=== PATIENT | male | born 1970 | race Native Hawaiian/Other Pacific Islander ===

== ENCOUNTER 2016-09-03 04:03 | Outpatient (CLI) | payer OTHER ==
[~2016-09-03 04:03] MED LIST: IBUP-97 PO; TYLENOL325 MG OR
== END 2016-09-03 04:08 | disposition short-term general hospital (02) ==
LOC: AMB 04:03
DX: R10.84 Generalized abdominal pain (principal)
CPT/HCPCS: A0425; A0427

== ENCOUNTER 2016-09-03 04:11 | Inpatient (IN) | payer OTHER ==
[~2016-09-03] VITALS: Ht 167.6 cm; Wt 69.4 kg
[2016-09-03 04:15] VITALS: BP 193/93; TEMP 98.7
[2016-09-03 05:57] LABS: POTASSIUM 3.1 mmol/L (3.6-5.2); SODIUM 135 mmol/L (136-145)
[2016-09-03 06:08] LABS: PLATELET COUNT 572 K/uL (142-355)
[2016-09-03 09:05] VITALS: BP 201/87; TEMP 97.6; Ht 167.6 cm; Wt 69.4 kg
[2016-09-03 12:00] VITALS: BP 141/89; TEMP 97.3
[2016-09-03 16:00] VITALS: BP 137/86; TEMP 99.6
[2016-09-03 20:00] VITALS: BP 115/79; TEMP 98.4
[2016-09-04] VITALS: BP 120/82; TEMP 98.3
[2016-09-04 04:00] VITALS: BP 133/84; TEMP 97.6
[2016-09-04 05:38] LABS: POTASSIUM 3.7 mmol/L (3.6-5.2); SODIUM 140 mmol/L (136-145)
[2016-09-04 05:45] LABS: PLATELET COUNT 533 K/uL (142-355)
[2016-09-04 08:00] VITALS: BP 120/89; TEMP 99.1
[2016-09-04 12:00] VITALS: BP 131/83; TEMP 98.4
[2016-09-04 16:00] VITALS: BP 130/86; TEMP 98.9
[2016-09-04 20:00] VITALS: BP 132/72; TEMP 98.8
[2016-09-05 00:13] VITALS: BP 112/79; TEMP 98.5
[2016-09-05 04:00] VITALS: BP 128/80; TEMP 98.1
[2016-09-05 05:57] LABS: PLATELET COUNT 506 K/uL (142-355)
[2016-09-05 06:32] LABS: POTASSIUM 3.6 mmol/L (3.6-5.2); SODIUM 137 mmol/L (136-145)
[2016-09-05 08:00] VITALS: BP 130/83; TEMP 98.7
[2016-09-05 12:00] VITALS: BP 130/84; TEMP 98
[2016-09-05 16:00] VITALS: BP 142/93; TEMP 98.2
[2016-09-05 20:29] VITALS: BP 131/75; TEMP 98.7
[2016-09-06 00:19] VITALS: BP 127/81; TEMP 98
[2016-09-06 04:00] VITALS: BP 135/82; TEMP 98.6
[2016-09-06 05:56] LABS: POTASSIUM 3.7 mmol/L (3.6-5.2); SODIUM 138 mmol/L (136-145)
[2016-09-06 06:05] LABS: PLATELET COUNT 538 K/uL (142-355)
[2016-09-06 08:00] VITALS: BP 128/80; TEMP 98.6
[2016-09-06 12:00] VITALS: BP 140/81; TEMP 98.7
[2016-09-06 16:00] VITALS: BP 130/86; TEMP 98.3
[2016-09-06 20:00] VITALS: BP 134/86; TEMP 98.7
[2016-09-07] VITALS: BP 154/84; TEMP 97.7
[2016-09-07 04:00] VITALS: BP 112/86; TEMP 97.9
[2016-09-07 05:26] LABS: PLATELET COUNT 565 K/uL (142-355)
[2016-09-07 05:35] LABS: POTASSIUM 3.8 mmol/L (3.6-5.2); SODIUM 140 mmol/L (136-145)
[2016-09-07 07:56] VITALS: BP 107/84; TEMP 98.2
== END 2016-09-07 15:40 | disposition home or self-care (01) | DRG 382 ==
LOC: ED 04:11 → MED/SURG 06:20
PROVIDERS: Emergency Medicine; ADMIT Family Medicine
DX: K26.1 Acute duodenal ulcer with perforation (principal); K29.00 Acute gastritis without bleeding
CPT/HCPCS: 36415; 80053; 80307; 81000; 82271; 83605; 83735; 83986; 85014; 85018; 85027; 93005; 96360; 96366; 96367; 96374; 96375; 99284; G0479; J2060; J2270; J3475; J3490; Q9963

== ENCOUNTER 2016-09-09 16:59 | Inpatient (IN) | payer OTHER ==
[~2016-09-09] VITALS: Ht 167.6 cm; Wt 71.0 kg
[2016-09-09 17:13] VITALS: BP 175/104; TEMP 97.6
[2016-09-09 18:39] LABS: PLATELET COUNT 540 K/uL (142-355)
[2016-09-09 18:55] LABS: POTASSIUM 3.6 mmol/L (3.6-5.2); SODIUM 133 mmol/L (136-145)
[2016-09-09 20:00] VITALS: BP 164/87; TEMP 98.7
[2016-09-10] VITALS (7 sets, daily range): BP systolic 112–164; BP diastolic 70–92; TEMP 97.5–98.8; Ht 167.6 cm; Wt 71.0 kg
[2016-09-10 07:15] LABS: PLATELET COUNT 619 K/uL (142-355)
[2016-09-10 07:33] LABS: POTASSIUM 3.7 mmol/L (3.6-5.2); SODIUM 137 mmol/L (136-145)
[2016-09-11] VITALS: BP 121/79; TEMP 98.3
[2016-09-11 04:00] VITALS: BP 158/77; TEMP 98
[2016-09-11 06:46] LABS: PLATELET COUNT 717 K/uL (142-355)
[2016-09-11 07:43] LABS: POTASSIUM 4.1 mmol/L (3.6-5.2); SODIUM 139 mmol/L (136-145)
[2016-09-11 08:00] VITALS: BP 145/90; TEMP 98.4
[2016-09-11 11:56] VITALS: BP 113/82; TEMP 98.4
[2016-09-11 16:00] VITALS: BP 127/79; TEMP 98.1
[2016-09-11 20:00] VITALS: BP 108/62; TEMP 98.5
[2016-09-12] VITALS: BP 126/79; TEMP 98.6
[2016-09-12 04:00] VITALS: BP 132/90; TEMP 97.3
[2016-09-12 06:40] LABS: PLATELET COUNT 719 K/uL (142-355)
[2016-09-12 06:49] LABS: POTASSIUM 3.8 mmol/L (3.6-5.2); SODIUM 138 mmol/L (136-145)
[2016-09-12 08:00] VITALS: BP 129/83; TEMP 98.4
--- NOTE | 2016-09-12 14:05 | NUR ---
IV D/C'd. DISCHARGE INSTRUCTIONS SIGNED AND GIVEN. Pt. EXIT OUT OF FRONT ENTRANCE AMBULATING.
== END 2016-09-12 14:05 | disposition home or self-care (01) | DRG 392 ==
LOC: ED 16:59 → MED/SURG 19:59
PROVIDERS: Emergency Medicine; Internal Medicine; ADMIT Specialist
DX: K29.00 Acute gastritis without bleeding (principal); A04.8 Other specified bacterial intestinal infections; K29.80 Duodenitis without bleeding; J44.9 Chronic obstructive pulmonary disease, unspecified
CPT/HCPCS: 36415; 80053; 82150; 82272; 83690; 83735; 85014; 85018; 85027; 86318; 86850; 86900; 86901; 86922; 96361; 96374; 96375; 99284; J1650; J2175; J2550; J2780; J3490; J7120

== ENCOUNTER 2022-04-17 12:52 | Emergency (ER) | payer OTHER ==
[~2022-04-17] VITALS: Ht 167.6 cm; Wt 74.8 kg
[2022-04-17 12:56] VITALS: BP 144/71; TEMP 98.2
[2022-04-17 13:33] LABS: PLATELET COUNT 435 K/uL (142-355)
== END 2022-04-17 14:49 | disposition home or self-care (01) ==
LOC: ED 12:52
PROVIDERS: Emergency Medicine
DX: L02.415 Cutaneous abscess of right lower limb (principal); L03.115 Cellulitis of right lower limb
CPT/HCPCS: 80048; 83605; 85027; 90471; 90715; 96365; 99284; J0696

== ENCOUNTER 2022-04-24 10:45 | Observation (INO) | payer OTHER ==
[~2022-04-24] VITALS: Ht 172.7 cm; Wt 72.7 kg
[2022-04-24 13:12] VITALS: BP 128/75; TEMP 98.2; Ht 172.7 cm; Wt 72.7 kg
[2022-04-24 13:24] LABS: PLATELET COUNT 435 K/uL (142-355)
[2022-04-24 13:42] LABS: POTASSIUM 3.8 mmol/L (3.6-5.2)
[2022-04-24 16:00] VITALS: BP 146/68; TEMP 97.4
[2022-04-24 19:37] VITALS: BP 101/64; TEMP 98.5
[2022-04-24 23:33] VITALS: BP 124/62; TEMP 98.3
[2022-04-25 03:32] VITALS: BP 121/78; TEMP 98.3
[2022-04-25 08:00] VITALS: BP 141/78; TEMP 98.4
[2022-04-25] MEDS ORDERED: ALBU0.0813 INH (08:10)
[2022-04-25] MEDS ORDERED: BUDE1AER3 INH (08:11)
[2022-04-25] MEDS ORDERED: METO25TA2 PO (08:12)
[2022-04-25] MEDS ORDERED: CLINDAMYCIN HY300 MG PO (08:13)
[2022-04-25] MEDS ORDERED: LEVO250T2 PO (08:14)
== END 2022-04-25 09:59 | disposition home or self-care (01) ==
LOC: MED/SURG 10:45
PROVIDERS: ADMIT Internal Medicine; ATTEND Internal Medicine
DX: L03.115 Cellulitis of right lower limb (principal); I49.8 Other specified cardiac arrhythmias; Z72.0 Tobacco use; J44.9 Chronic obstructive pulmonary disease, unspecified; K27.9 Peptic ulcer, site unspecified, unspecified as acute or chronic, without hemorrhage or perforation
CPT/HCPCS: 36600; 80053; 81002; 82805; 83605; 84484; 85027; 86140; 87040; 87070; 87205; 90715; 93005; 94760; 96365; 96367; 96372; 96375; 99220; G0378; G0379; J3370; J3490

== ENCOUNTER 2022-09-09 15:05 | Inpatient (IN) | payer OTHER ==
[2022-09-09] VITALS (13 sets, daily range): BP systolic 105–140; BP diastolic 56–82; TEMP 97.7–99; Ht 170.2 cm; Wt 74.2 kg
[~2022-09-09] VITALS: Ht 170.2 cm; Wt 74.2 kg
[~2022-09-09 15:05] MED LIST changes: +ALBU0.0813 INH; +BUDE1AER3 INH; +CLINDAMYCIN HY300 MG PO; +LEVO250T2 PO; +METO25TA2 PO
[2022-09-09 18:41] LABS: PLATELET COUNT 364 K/uL (142-355)
[2022-09-09 18:42] LABS: POTASSIUM 3.5 mmol/L (3.6-5.2)
[2022-09-10 04:00] VITALS: BP 129/86; TEMP 98.7
[2022-09-10 05:03] LABS: PLATELET COUNT 345 K/uL (142-355)
[2022-09-10 05:25] LABS: POTASSIUM 4.1 mmol/L (3.6-5.2)
[2022-09-10 08:00] VITALS: BP 128/86; TEMP 98.7
[2022-09-10 11:47] VITALS: BP 121/74; TEMP 98.3
[2022-09-10 16:00] VITALS: BP 126/71; TEMP 99.3
[2022-09-10 19:33] VITALS: BP 120/77; TEMP 99.1
[2022-09-10 23:31] VITALS: BP 119/76; TEMP 98.8
[2022-09-11 03:30] VITALS: BP 115/74; TEMP 100
[2022-09-11 07:54] LABS: POTASSIUM 4.7 mmol/L (3.6-5.2)
[2022-09-11 08:00] VITALS: BP 107/69; TEMP 98.8
[2022-09-11 08:06] LABS: PLATELET COUNT 358 K/uL (142-355)
[2022-09-11 12:00] VITALS: BP 107/74; TEMP 98.5
[2022-09-11 16:00] VITALS: BP 93/63; TEMP 98.2
[2022-09-11 19:44] VITALS: BP 134/74; TEMP 98.9
[2022-09-11 23:39] VITALS: BP 120/76; TEMP 99
[2022-09-12 03:33] VITALS: BP 106/74; TEMP 98.8
[2022-09-12 07:59] VITALS: BP 112/73; TEMP 98.3
[2022-09-12 12:00] VITALS: BP 113/79; TEMP 98.3
[2022-09-12 13:04] LABS: PLATELET COUNT 346 K/uL (142-355)
[2022-09-12 13:18] LABS: POTASSIUM 4.4 mmol/L (3.6-5.2)
== END 2022-09-12 13:18 | disposition home or self-care (01) | DRG 184 ==
LOC: ED 15:05 → MED/SURG 22:00
PROVIDERS: Family Medicine; ADMIT Nurse Practitioner Family; ATTEND Internal Medicine Endocrinology, Diabetes & Metabolism
DX: S22.41XA Multiple fractures of ribs, right side, initial encounter for closed fracture (principal); J93.9 Pneumothorax, unspecified; J94.2 Hemothorax; S42.191A Fracture of other part of scapula, right shoulder, initial encounter for closed fracture; V19.88XA Pedal cyclist (driver) (passenger) injured in other specified transport accidents, initial encounter; Y92.89 Other specified places as the place of occurrence of the external cause; R52 Pain, unspecified; D72.828 Other elevated white blood cell count; E86.0 Dehydration; F10.10 Alcohol abuse, uncomplicated; R09.02 Hypoxemia; J44.9 Chronic obstructive pulmonary disease, unspecified; I10 Essential (primary) hypertension; F17.210 Nicotine dependence, cigarettes, uncomplicated
CPT/HCPCS: 36415; 80048; 80053; 80320; 85027; 90471; 90715; 94760; 96361; 96366; 96367; 96375; 96376; 99283; J1885; J1956; J2270